=== PATIENT | male | born 1970 ===

== ENCOUNTER 2021-03-09 20:01 | Observation (INO) ==
[2021-03-09 22:38] LABS: Basophils # 0.1 10*3/uL (0.0-0.2); Basophils % 0.6 % (0.0-0.8); Eosinophils # 0.2 10*3/uL (0.0-0.87); Eosinophils % 1.9 % (0.00-10.9); Hematocrit 52.7 VOL% (42.0-52.0); Immature Granulocytes % 0.8 %; Immature Granulocytes Absolute 0.08 #; Lymphocytes # 2.7 10*3/uL (1.4-4.0); Lymphocytes % 27.1 % (21.2-54.2); Mean Corpuscular HGB Conc 32.3 GM/DL (32-36); Mean Corpuscular Volume 89.3 FL (87-102); Mean Platelet Volume 8.7 FL (9.6-12.0); Monocytes % 7.8 % (1.7-12.7); Neutrophils % 61.8 % (38.7-73.9); Platelet Count 309 T/CUMM (130-400); Red Cell Distribution Width 13.9 % (9.3-17.3)
[2021-03-09 22:58] LABS: Albumin 3.7 G/DL (3.4-5.0); Bilirubin,Total 0.6 MG/DL (0.20-1.00); Osmolality,Calculated 274.8 MOS/KG (273-304); Potassium 3.7 MMOL/L (3.5-5.1); Total Protein 7.8 G/DL (6.4-8.2)
[2021-03-09] MEDS ORDERED: DEXTROSE 50% 25 GM/50 ML VIAL IV PRN (23:05)
[2021-03-09] MEDS ORDERED: ACETAMINOPHEN 325 MG TABLET PO PRN (23:05)
[2021-03-09] MEDS ORDERED: NICOTINE 21 MG/24 HR PATCH TRANSDERM PRN (23:05)
[2021-03-09] MEDS ORDERED: hydrALAZINE 20 MG/1 ML VIAL IV PRN (23:05)
[2021-03-09] MEDS ORDERED: GLUCAGON 1 MG VIAL IM PRN (23:05)
[2021-03-09] MEDS ORDERED: ONDANSETRON 4 MG/2 ML VIAL IV PRN (23:05)
[2021-03-09] MEDS ORDERED: DEXTROSE 50% 25 GM/50 ML SYRINGE IV PRN (23:45)
[2021-03-10] MEDS: METOPROLOL SUCCINATE XL 25 MG TABLET PO SCH ×2 (00:34→10:15)
[2021-03-10] MEDS: SODIUM CHLORIDE 0.9% 1,000 ML IV SCH ×3 (00:35→23:20)
[2021-03-10 05:09] LABS: Basophils # 0.1 10*3/uL (0.0-0.2); Basophils % 0.7 % (0.0-0.8); Eosinophils # 0.2 10*3/uL (0.0-0.87); Eosinophils % 1.8 % (0.00-10.9); Hematocrit 50.2 VOL% (42.0-52.0); Hemoglobin 16.2 GM/DL (14.0-18.0); Immature Granulocytes % 0.9 %; Lymphocytes # 2.4 10*3/uL (1.4-4.0); Lymphocytes % 22.6 % (21.2-54.2); Mean Corpuscular HGB Conc 32.3 GM/DL (32-36); Mean Corpuscular Volume 89.3 FL (87-102); Mean Platelet Volume 8.9 FL (9.6-12.0); Monocytes % 9.4 % (1.7-12.7); Neutrophils % 64.6 % (38.7-73.9); Platelet Count 319 T/CUMM (130-400); Red Blood Count 5.62 MC/CUMM (3.8-5.5); Red Cell Distribution Width 13.8 % (9.3-17.3); White Blood Count 10.6 T/CUMM (4-12)
[2021-03-10 05:57] LABS: Calcium 9.1 MG/DL (8.5-10.1); Osmolality,Calculated 274.8 MOS/KG (273-304); Potassium 3.7 MMOL/L (3.5-5.1); Risk Ratio 6.74; Thyroid Stimulating Hormone 30.9 uIU/ml (0.358-3.74)
[2021-03-10] MEDS ORDERED: NITROGLYCERIN SL 0.4 MG TABLET SL PRN (09:01)
[2021-03-10] MEDS: ASPIRIN EC 325 MG TABLET PO SCH (10:14)
[2021-03-10] MEDS: PANTOPRAZOLE 40 MG TABLET PO SCH (10:14)
[2021-03-10] MEDS: ENOXAPARIN 40 MG/0.4 ML SYRINGE SUBCUT SCH (10:15)
[2021-03-10] MEDS ORDERED: HEPARIN/NACL 0.9% 2 UNITS/ML 3,000 UNIT/1,500 ML BAG IV ONE (14:18)
[2021-03-10] MEDS ORDERED: LIDOCAINE 1% 20 ML VIAL ONE (14:58)
[2021-03-10] MEDS ORDERED: fentaNYL 100 MCG/2 ML VIAL ONE (15:25)
[2021-03-10] MEDS ORDERED: MIDAZOLAM 2 MG/2 ML VIAL ONE (15:25)
[2021-03-10] MEDS ORDERED: ESCITALOPRAM 10 MG TABLET PO SCH (21:00)
[2021-03-10] MEDS ORDERED: ROSUVASTATIN 20 MG TABLET PO SCH (21:00)
[2021-03-11 05:44] LABS: Basophils # 0.1 10*3/uL (0.0-0.2); Basophils % 0.7 % (0.0-0.8); Eosinophils # 0.2 10*3/uL (0.0-0.87); Eosinophils % 2.5 % (0.00-10.9); Hematocrit 51.3 VOL% (42.0-52.0); Hemoglobin 16.6 GM/DL (14.0-18.0); Immature Granulocytes % 0.8 %; Immature Granulocytes Absolute 0.07 #; Lymphocytes # 2.7 10*3/uL (1.4-4.0); Lymphocytes % 29.1 % (21.2-54.2); Mean Corpuscular HGB Conc 32.4 GM/DL (32-36); Mean Platelet Volume 9.1 FL (9.6-12.0); Neutrophils % 56.9 % (38.7-73.9); Platelet Count 311 T/CUMM (130-400); Red Cell Distribution Width 13.9 % (9.3-17.3); White Blood Count 9.2 T/CUMM (4-12)
[2021-03-11 05:56] LABS: Calcium 8.8 MG/DL (8.5-10.1); Osmolality,Calculated 273.8 MOS/KG (273-304); Potassium 4.1 MMOL/L (3.5-5.1)
[2021-03-11] MEDS: SODIUM CHLORIDE 0.9% 1,000 ML IV SCH (06:21)
[2021-03-11] MEDS ORDERED: LEVOTHYROXINE 50 MCG TABLET PO SCH (06:30)
[2021-03-11] MEDS ORDERED: FUROSEMIDE 20 MG/2 ML VIAL IV SCH (08:00)
[2021-03-11] MEDS: ASPIRIN EC 325 MG TABLET PO SCH (08:40)
[2021-03-11] MEDS: ENOXAPARIN 40 MG/0.4 ML SYRINGE SUBCUT SCH (08:40)
[2021-03-11] MEDS: METOPROLOL SUCCINATE XL 25 MG TABLET PO SCH (08:40)
[2021-03-11] MEDS: PANTOPRAZOLE 40 MG TABLET PO SCH (08:43)
[2021-03-11] MEDS ORDERED: lisinopriL 5 MG TABLET PO SCH (09:00)
[2021-03-11 11:01] LABS: Barbiturates Screen,Urine Negative (Negative); Benzodiazepines Screen,Urine Positive (Negative); Cannabinoid Screen,Urine Positive (Negative); Opiate Screen,Urine Negative (Negative); Phencyclidine Screen,Urine Negative (Negative)
[2021-03-11 12:29] VITALS: BP 158/106
== END 2021-03-11 17:25 | disposition home or self-care (01) ==
LOC: N.TELEN → SUATTDRO 22:08
PROVIDERS: ADMIT Internal Medicine; ATTEND Internal Medicine

== ENCOUNTER 2021-08-14 12:32 | Inpatient (IN) ==
[2021-08-14] MEDS ORDERED: MORPHINE 2 MG/1 ML SYRINGE IV STA (12:56)
[2021-08-14] MEDS ORDERED: HEPARIN 5,000 UNIT/1 ML VIAL IV ONE (12:56)
[2021-08-14] MEDS ORDERED: ONDANSETRON 4 MG/2 ML VIAL IV STA (12:56)
[2021-08-14] MEDS ORDERED: NITROGLYCERIN DRIP 50 MG/250 ML BOTTLE IV SCH (13:00)
[2021-08-14 13:16] LABS: Basophils # 0.1 10*3/uL (0.0-0.2); Basophils % 0.5 % (0.0-0.8); Eosinophils # 0.2 10*3/uL (0.0-0.87); Eosinophils % 1.6 % (0.00-10.9); Hematocrit 45.7 VOL% (42.0-52.0); Hemoglobin 14.3 GM/DL (14.0-18.0); Immature Granulocytes % 0.6 %; Immature Granulocytes Absolute 0.07 #; Lymphocytes # 2.1 10*3/uL (1.4-4.0); Lymphocytes % 19.5 % (21.2-54.2); Mean Corpuscular HGB Conc 31.3 GM/DL (32-36); Mean Corpuscular Volume 94.8 FL (87-102); Mean Platelet Volume 9.3 FL (9.6-12.0); Monocytes # 0.8 10*3/uL (0.11-0.8); Monocytes % 7.2 % (1.7-12.7); Neutrophils % 70.6 % (38.7-73.9); Platelet Count 278 T/CUMM (130-400); Red Blood Count 4.82 MC/CUMM (3.8-5.5); Red Cell Distribution Width 13.8 % (9.3-17.3); White Blood Count 10.8 T/CUMM (4-12)
[2021-08-14 13:27] LABS: PT Patient Result 10.8 SECS (10.5-12.0); Partial Thromboplastin Time 31.4 SECS (23.8-32.1)
[2021-08-14 13:36] LABS: Alanine Aminotransferase 58 U/L (16-61); Albumin 3.3 G/DL (3.4-5.0); Alkaline Phosphatase 58 U/L (45-117); Aspartate Amino Transferase 40 U/L (0-37); Bilirubin,Total < 0.39 MG/DL (0.20-1.00); Blood Urea Nitrogen 20 MG/DL (7-18); Calcium 8.5 MG/DL (8.5-10.1); Carbon Dioxide 27 MMOL/L (21-32); Chloride 108 MMOL/L (98-107); Glucose 124 MG/DL (74-106); Osmolality,Calculated 282.4 MOS/KG (273-304); Potassium 3.7 MMOL/L (3.5-5.1); Sodium 140 MMOL/L (136-145); Total Protein 6.8 G/DL (6.4-8.2)
[2021-08-14] MEDS ORDERED: ALUMINUM/MAGNES/SIMETH MAX STR 30 ML UDCUP PO PRN (13:39)
[2021-08-14] MEDS ORDERED: ONDANSETRON 4 MG/2 ML VIAL IV PRN (13:39)
[2021-08-14] MEDS ORDERED: ACETAMINOPHEN 325 MG TABLET PO PRN (13:39)
[2021-08-14] MEDS ORDERED: CALCIUM CARBONATE CHEW 500 MG TABLET PO PRN (13:39)
[2021-08-14] MEDS ORDERED: BISACODYL 5 MG TABLET PO PRN (13:39)
[2021-08-14] MEDS ORDERED: LACTULOSE 20 GM/30 ML UDCUP PO PRN (13:39)
[2021-08-14] MEDS ORDERED: SIMETHICONE CHEW 125 MG TABLET PO PRN (13:39)
[2021-08-14] MEDS ORDERED: SODIUM CHLORIDE 0.9% 1,000 ML IV SCH (16:00)
[2021-08-14] MEDS ORDERED: HEPARIN/NACL 0.9% 2 UNITS/ML 3,000 UNIT/1,500 ML BAG IV ONE (16:02)
[2021-08-14] MEDS ORDERED: MIDAZOLAM 2 MG/2 ML VIAL ONE (16:07)
[2021-08-14] MEDS ORDERED: fentaNYL 100 MCG/2 ML VIAL ONE (16:07)
[2021-08-14 16:09] VITALS: BP 157/114
[2021-08-14] MEDS ORDERED: hydrALAZINE 20 MG/1 ML VIAL IV PRN (18:27)
[2021-08-14] MEDS: FUROSEMIDE 40 MG/4 ML VIAL IV SCH (18:42)
[2021-08-14 19:13] LABS: Mucus,Urine Occasional /LPF (Occasional); RBC,Urine 2 /HPF (0-4); Squamous Epithelial Cell,Urine Occasional /HPF (0-10)
[2021-08-14 19:20] LABS: Bilirubin,Urine Negative (Negative); Blood, Urine Negative (Negative); Glucose,Urine (UA) Negative (Negative); Ketones,Urine Negative (Negative); Nitrite,Urine Negative (Negative); Protein,Urine Negative (Negative); Urine Appearance Clear (Clear); Urine Color Yellow (Yellow); Urine Urobilinogen 0.2 eU/dL (<2.0)
[2021-08-14 20:25] LABS: Barbiturates Screen,Urine Negative (Negative); Benzodiazepines Screen,Urine Positive (Negative); Cannabinoid Screen,Urine Positive (Negative); Opiate Screen,Urine Positive (Negative); Phencyclidine Screen,Urine Negative (Negative)
[2021-08-14] MEDS ORDERED: ZALEPLON 5 MG CAPSULE PO PRN (21:00)
[2021-08-14] MEDS: ROSUVASTATIN 20 MG TABLET PO SCH (21:31)
[2021-08-14] MEDS: ESCITALOPRAM 10 MG TABLET PO SCH (21:32)
[2021-08-15] MEDS: LEVOTHYROXINE 50 MCG TABLET PO SCH (05:17)
[2021-08-15 05:58] LABS: Basophils # 0.1 10*3/uL (0.0-0.2); Basophils % 0.5 % (0.0-0.8); Eosinophils # 0.2 10*3/uL (0.0-0.87); Eosinophils % 1.3 % (0.00-10.9); Hematocrit 48.4 VOL% (42.0-52.0); Immature Granulocytes % 0.5 %; Immature Granulocytes Absolute 0.06 #; Lymphocytes # 1.9 10*3/uL (1.4-4.0); Lymphocytes % 16.1 % (21.2-54.2); Mean Corpuscular Volume 95.3 FL (87-102); Mean Platelet Volume 9.4 FL (9.6-12.0); Monocytes # 1.1 10*3/uL (0.11-0.8); Monocytes % 9.3 % (1.7-12.7); Neutrophils % 72.3 % (38.7-73.9); Platelet Count 289 T/CUMM (130-400); Red Blood Count 5.08 MC/CUMM (3.8-5.5); Red Cell Distribution Width 13.8 % (9.3-17.3); White Blood Count 11.6 T/CUMM (4-12)
[2021-08-15 06:25] LABS: Calcium 8.9 MG/DL (8.5-10.1); Osmolality,Calculated 277.7 MOS/KG (273-304); Potassium 3.7 MMOL/L (3.5-5.1); Risk Ratio 5.26; Thyroid Stimulating Hormone 16.3 uIU/ml (0.358-3.74); VLDL Cholesterol 27.8 MG/DL
[2021-08-15] MEDS ORDERED: lisinopriL 5 MG TABLET PO SCH (09:00)
[2021-08-15] MEDS: ENOXAPARIN 40 MG/0.4 ML SYRINGE SUBCUT SCH (09:17)
[2021-08-15] MEDS: METOPROLOL SUCCINATE XL 25 MG TABLET PO SCH (09:17)
[2021-08-15] MEDS: LOSARTAN 25 MG TABLET PO SCH (09:17)
[2021-08-15] MEDS: ASPIRIN EC 81 MG TABLET PO SCH (09:17)
[2021-08-15] MEDS: FUROSEMIDE 40 MG/4 ML VIAL IV SCH ×2 (09:17→16:50)
[2021-08-15] MEDS: PANTOPRAZOLE 40 MG TABLET PO SCH (09:17)
[2021-08-15] MEDS: DAPAGLIFLOZIN 10 MG TABLET PO SCH (09:18)
[2021-08-15 18:03] LABS: Calcium 8.8 MG/DL (8.5-10.1); Osmolality,Calculated 273.1 MOS/KG (273-304); Potassium 3.7 MMOL/L (3.5-5.1)
[2021-08-15] MEDS: ESCITALOPRAM 10 MG TABLET PO SCH (21:04)
[2021-08-15] MEDS: ROSUVASTATIN 20 MG TABLET PO SCH (21:04)
[2021-08-16 04:34] LABS: Basophils # 0.1 10*3/uL (0.0-0.2); Basophils % 0.6 % (0.0-0.8); Eosinophils # 0.2 10*3/uL (0.0-0.87); Eosinophils % 1.7 % (0.00-10.9); Hematocrit 50.6 VOL% (42.0-52.0); Hemoglobin 16.1 GM/DL (14.0-18.0); Immature Granulocytes % 0.7 %; Immature Granulocytes Absolute 0.08 #; Lymphocytes # 2.3 10*3/uL (1.4-4.0); Lymphocytes % 21.6 % (21.2-54.2); Mean Corpuscular HGB Conc 31.8 GM/DL (32-36); Mean Corpuscular Volume 94.1 FL (87-102); Mean Platelet Volume 9.4 FL (9.6-12.0); Monocytes # 1.1 10*3/uL (0.11-0.8); Monocytes % 10.4 % (1.7-12.7); Platelet Count 306 T/CUMM (130-400); Red Blood Count 5.38 MC/CUMM (3.8-5.5); Red Cell Distribution Width 13.7 % (9.3-17.3); White Blood Count 10.8 T/CUMM (4-12)
[2021-08-16 05:03] LABS: Osmolality,Calculated 275.8 MOS/KG (273-304); Potassium 3.6 MMOL/L (3.5-5.1)
[2021-08-16] MEDS: LEVOTHYROXINE 50 MCG TABLET PO SCH (05:34)
[2021-08-16] MEDS: DAPAGLIFLOZIN 10 MG TABLET PO SCH (08:45)
[2021-08-16] MEDS: ENOXAPARIN 40 MG/0.4 ML SYRINGE SUBCUT SCH (08:45)
[2021-08-16] MEDS: METOPROLOL SUCCINATE XL 25 MG TABLET PO SCH (08:45)
[2021-08-16] MEDS: FUROSEMIDE 40 MG/4 ML VIAL IV SCH (08:46)
[2021-08-16] MEDS: ASPIRIN EC 81 MG TABLET PO SCH (08:46)
[2021-08-16] MEDS: LOSARTAN 25 MG TABLET PO SCH (08:46)
[2021-08-16] MEDS: PANTOPRAZOLE 40 MG TABLET PO SCH (08:46)
== END 2021-08-16 13:45 | disposition home or self-care (01) | DRG 286 ==
LOC: N.ED 12:32 → N.EDINP 12:32 → N.ICU 16:07
PROVIDERS: ADMIT Internal Medicine Cardiovascular Disease; ATTEND Internal Medicine Cardiovascular Disease